=== PATIENT | male | born 1955 ===

== ENCOUNTER 2017-11-09 11:35 | Observation (INO) | payer SELFPAY ==
--- NOTE | 2017-11-09 12:55 | ED PDOC ---
HPI:STROKE - Time Time: 12:52 - Historian Historian: Patient - Chief Complaint Chief Complaint: Numbness - Onset Date: 11/08/17 Time: 23:00 - Timing Timing: Improved - TPA Positive for Contraindication: Yes Reason tPA is not being Administered: nih 0 and out of window - Notes: Notes:: Pt. had left arm tingles and cramps last night. Also present today morning with numbness so he came to the Er. Has left chest pain yesterday and took 1 ntg. Mild pain currently. Had dizziness mild, like light-headed. Yesterday felt tingles to the left face, but gone now. No leg issues. No right side issues. No dyspnea, abd pain. Has had diarrhea with black stool for 6 days. No nausea, vomit. No headache. NIHSS Stroke Scale - Date/Time Evaluation Performed Date Performed: 11/09/17 Time Performed: 12:55 When Was NIHSS Performed: Baseline - How Severe is the Stroke Level of Consciousness: 0=Alert LOC to Questions: 0=Both comments correct LOC to commands: 0=Obeys both correctly Best Gaze: 0=Normal Visual: 0=No visual loss Facial: 0=Normal Motor Arm - Left: 0=No drift Motor Arm - Right: 0=No drift Motor Leg - Left: 0=No drift Motor Leg - Right: 0=No drift Limb Ataxia: 0=Absent Sensory: 0=Normal Best Language: 0=No aphasia Dysarthia: 0=Normal articulation Extinction & Inattention (Neglect): 0=Normal, no object Score: 0 rTPA Inclusion/Exclusion - Refusal of Treatment Patient Refused Treatment: No - Inclusion Criteria for Altepase Patient is 18 years or Older: Yes The Clinical Diagnosis of Ischemic Stroke That is Causing a Potentially Disabling Neurological Deficit: No Time of Onset is Well Established to be Less Than 270 Minute Before Treatment Would Begin: No Risk/Benefit Discussed With Patient/Family Member Present: No Past Medical History Reviewed: Nursing Documentation, Vital Signs Vital Signs: Last Vital Signs Temp 99.8 F H 11/09/17 12:17 Pulse 74 11/09/17 12:17 Resp 16 11/09/17 12:17 BP 171/101 H 11/09/17 12:17 Pulse Ox 98 11/09/17 12:17 - Medical History PMH: Asthma, Back Problems, CAD, Depression, Diabetes, HTN, Hypercholesterolemia , Hyperlipidemia Denies: Chronic Kidney Disease - Surgical History Surgical History: Coronary Stent - Family History Family History: States: Unknown Family Hx - Social History Alcohol: None Drugs: Denies - Immunization History Hx Tetanus Toxoid Vaccination: No Hx Influenza Vaccination: Yes Hx Pneumococcal Vaccination: Yes - Home Medications Home Medications: Ambulatory Orders Medication Instructions Recorded Albuterol Sulfate [Ventolin Hfa] 2 puff IH Q6 PRN 11/09/17 Aspirin [Ecotrin] 81 mg PO DAILY 11/09/17 Atorvastatin [Lipitor] 40 mg PO HS 11/09/17 Lisinopril [Zestril] 20 mg PO DAILY 11/09/17 MetFORMIN [glucoPHAGE] 1,000 mg PO BID 11/09/17 Nitroglycerin [Nitrostat] 0.4 mg PO Q5MIN PRN 11/09/17 Pregabalin [Lyrica] 150 mg PO HS 11/09/17 Sertraline [Zoloft] 100 mg PO DAILY 11/09/17 hydrOXYzine HCl [Atarax] 10 mg PO DAILY 11/09/17 hydrOXYzine Pamoate [Vistaril] 25 mg PO HS 11/09/17 - Allergies Allergies/Adverse Reactions: Allergies Allergy/AdvReac Type Severity Reaction Status Date / Time Penicillins Allergy RASH Verified 04/28/15 08:07 Review of Systems ROS Statement: Except As Marked, All Systems Reviewed And Found Negative Cardiovascular: Positive for: Chest Pain Musculoskeletal: Positive for: Arm Pain Neurological: Positive for: Numbness, Dizziness. Negative for: Headache Physical Exam - Reviewed Nursing Documentation Reviewed: Yes Vital Signs Reviewed: Yes - Physical Exam Appears: Positive for: Non-toxic, No Acute Distress Head Exam: Positive for: ATRAUMATIC, NORMAL INSPECTION, NORMOCEPHALIC Skin: Positive for: Normal Color, Warm, DRY Eye Exam: Positive for: EOMI, Normal appearance, PERRL ENT: Positive for: Normal ENT Inspection Neck: Positive for: Normal, Painless ROM, Supple Cardiovascular/Chest: Positive for: Regular Rate, Rhythm Respiratory: Positive for: CNT, Normal Breath Sounds Gastrointestinal/Abdominal: Positive for: Normal Exam, Soft. Negative for: Tenderness Back: Positive for: Normal Inspection. Negative for: L CVA Tenderness, R CVA Tenderness Rectal: Positive for: Normal Exam. Negative for: Black Stool, Blood Streaked Stool, Tenderness Extremity: Positive for: Normal ROM. Negative for: Tenderness, Pedal Edema, Calf Tenderness Neurologic/Psych: Positive for: Alert, jewel hole cornerer II-XII, Oriented. Negative for: Motor/Sensory Deficits, Aphasia, Facial Droop - Laboratory Results Result Diagrams: 11/09/17 13:20 11/09/17 13:20 Interpretation Of Abn Labs: no acute - ECG ECG: Positive for: Interpreted By Me, Viewed By Me ECG Rhythm: Positive for: Normal QRS, Normal ST Segment, Sinus Rhythm O2 Sat by Pulse Oximetry: 98 Pulse Ox Interpretation: Normal - Radiology X-Ray: Read By Radiologist X-Ray Interpretation: No Acute Disease - CT Scan/US ct Other Rad Studies (CT/US): Read By Radiologist Other Rad Interpretation: no acute - Progress ED Course And Treament: 1300: Spoke with Dr. Torres. States not a thrombolytic candidate. Continue evaluation. 1630: Stable. AAOx3. Will give ASA. Admit to [facility]. Pain free. Spoke with [facility] resident who will admit. Disposition - Clinical Impression Clinical Impression: Chest pain, Paresthesia - Patient ED Disposition Is Patient to be Admitted: Yes Counseled Patient/Family Regarding: Studies Performed, Diagnosis - Disposition Disposition Time: 16:32 Condition: FAIR - Pt Status Changed To: Hospital Disposition Of: Observation - POA Present On Arrival: None
--- NOTE | 2017-11-09 13:09 | CT ---
Date of service: 11/09/2017 PROCEDURE: CT HEAD WITHOUT CONTRAST. HISTORY: code stroke COMPARISON: None available. TECHNIQUE: Axial computed tomography images were obtained through the head/brain without intravenous contrast. Radiation dose: Total exam DLP = 947.47 mGy-cm. This CT exam was performed using one or more of the following dose reduction techniques: Automated exposure control, adjustment of the mA and/or kV according to patient size, and/or use of iterative reconstruction technique. FINDINGS: HEMORRHAGE: No intracranial hemorrhage. BRAIN: There are mild chronic microangiopathic changes. There is no mass, mass effect or abnormal extra-axial fluid collection. There is no territorial infarction. The midline sagittal structures are normal. VENTRICLES: There is mild age-related global parenchymal volume loss and proportionate enlargement of the ventricles and cortical sulci. CALVARIUM: Unremarkable. PARANASAL SINUSES: Unremarkable as visualized. No significant inflammatory changes. MASTOID AIR CELLS: Unremarkable as visualized. No inflammatory changes. OTHER FINDINGS: None. IMPRESSION: No acute intracranial abnormality. If there is a persistent focal neurologic deficit and an ongoing clinical concern for acute infarction, an MRI of the brain without intravenous contrast would be a more sensitive modality for evaluation of hyperacute/acute ischemic infarction.. Mild chronic microangiopathic changes and mild age-related global parenchymal volume loss. Important findings were discussed with Dr. Stan Vera on 11/09/2017 at 1:05 p.m.
[2017-11-09] MEDS: Sodium Chloride 0.9% 1,000 ML IV SCH ×2 (13:13→23:30)
--- NOTE | 2017-11-09 13:35 | RAD ---
HISTORY: Code Stroke COMPARISON: Chest x-ray performed 07/07/15. TECHNIQUE: Chest, one view. FINDINGS: Examination limited by numerous external wires and leads as well as habitus. LUNGS: No focal consolidation. Please note that chest x-ray has limited sensitivity for the detection of pulmonary masses. PLEURA: No significant pleural effusion identified. No definite pneumothorax . CARDIOVASCULAR: The cardiomediastinal silhouette appears within normal limits of size. OSSEOUS STRUCTURES: No acute osseous abnormality identified. VISUALIZED UPPER ABDOMEN: Unremarkable. OTHER FINDINGS: None. IMPRESSION: No focal consolidation identified.
[2017-11-09 13:38] LABS: BASO # 0.1 K/uL (0.0-0.2); BASO % 0.9 % (0.0-2.0); EOS # 0.2 K/uL (0.0-0.7); EOS % 1.4 % (0.0-4.0); HEMOGLOBIN 15.5 g/dL (12.0-18.0); LYMPH # 2.7 K/uL (1.0-4.3); LYMPH % 18.9 % (20.0-40.0); MEAN CELL VOLUME 89.5 fl (80.0-94.0); MEAN CORPUSCULAR HEMOGLOBIN 30.1 pg (27.0-31.0); MEAN CORPUSCULAR HGB CONC 33.7 g/dL (33.0-37.0); MEAN PLATELET VOLUME 7.7 fl (7.2-11.7); MONO # 1.1 K/uL (0.0-0.8); NEUT # 10.2 K/uL (1.8-7.0); NEUT % 70.8 % (50.0-75.0); NRBC % 0.1 % (0.0-0.0); RBC 5.16 Mil/uL (4.40-5.90); RED CELL DISTRIBUTION WIDTH 16.6 % (11.5-14.5); WHITE BLOOD COUNT 14.3 K/uL (4.8-10.8)
[2017-11-09 13:55] LABS: INR 1.1; PROTHROMBIN TIME 12.6 Seconds (9.8-13.1)
[2017-11-09 13:58] LABS: PARTIAL THROMBOPLASTIN TIME 33.2 Seconds (25.6-37.1)
[2017-11-09 14:02] LABS: ALB/GLOB RATIO 1.3 (1.0-2.1); ALBUMIN 4.4 g/dL (3.5-5.0); ALT/SGPT 30 U/L (21-72); AST/SGOT 28 U/L (17-59); BLOOD UREA NITROGEN 9 mg/dl (9-20); CALCIUM 9.5 mg/dL (8.4-10.2); GFR NON-AFRICAN AMERICAN > 60; HDL CHOLESTEROL 31 MG/DL (30-70)
[2017-11-09 14:12] LABS: LDL CHOLESTEROL 43 mg/dL (0-129)
--- NOTE | 2017-11-09 16:16 | CARD ---
APPROVED REPORT Date of service: 11/09/2017 <Conclusion> Normal sinus rhythm Minimal voltage criteria for LVH, may be normal variant Borderline ECG
[2017-11-09] MEDS ORDERED: Aspirin 325 mg EC Tablets PO ONE ×2 (17:12→17:30)
[2017-11-09] MEDS ORDERED: Glucagon Recombinant 1 mg Inj IM PRN (18:38)
[2017-11-09] MEDS ORDERED: Dextrose 50% SYRINGE Inj (50 ml) IV PRN (18:38)
--- NOTE | 2017-11-09 18:54 | CP.PCM.HP ---
<Fish Banda - Last Filed: 11/09/17 18:39> History of Present Illness - History of Present Illness History of Present Illness: CC: Chest pain and left arm numbness HPI: 61 y/o man w/ pmh of NIDDM2, CAD s/p stents (does not know how many) 2015, HTN, HLD, depression, insomnia presents to the ED w/ chest pain and left arm numbness. Patient reports symptoms started last night at rest around 22:00. Patient reports pain as hot/sharp in nature, radiating to left shoulder and neck , as well as slight numbness of the left face as well. Patient took his prescription lyrica and ASA w/o relief. Patient reports near resolution of his chest pain and left arm numbness as of 2 hours ago. Patient denied any issues w / his right side. Patient denies headache, SOB, abdominal pain, nausea, vomiting, or fever. Patient reported recent dark stool diarrhea. ED course: vitals: 98.4F, 63 beats/min, 158/89 mm Hg, resp 18, O2 100% room air CBC: 14.3>15.5/46.2<373 CMP: 140/4.5, 104/30, 9/0.8, glucose 94, AST 28, ALT 30, alk phos 71 troponin: <0.0120 lipid: trig 121, chol 97, LDL 43, HDL 31 stool occult: negative EKG: NSR, no acute ST elevation/depression, no T wave inversion/tenting CXR: no focal consolidation ASA 325 mg PO once IVF NS @ 100 mL/hr PMD: [facility] PMH: NIDDM2, HTN, HLD, depression, insomnia meds: see med list PSH: none Fam: brother and sister HTN SOC: smokes 5 cigs/day for 45 years, denies alcohol and drugs ROS: 12 points assessed and positive findings as stated above. Present on Admission - Present on Admission Any Indicators Present on Admission: No History of DVT/PE: No History of Uncontrolled Diabetes: No Urinary Catheter: No Decubitus Ulcer Present: No Review of Systems - Review of Systems All systems: reviewed and no additional remarkable complaints except - Constitutional Constitutional: absent: Chills, Fever, Headache - EENT Eyes: absent: Change in Vision - Cardiovascular Cardiovascular: As Per HPI, Chest Pain - Respiratory Respiratory: absent: Cough, Dyspnea - Gastrointestinal Gastrointestinal: Diarrhea. absent: Abdominal Pain, Nausea, Vomiting - Genitourinary Genitourinary: absent: Dysuria - Integumentary Integumentary: absent: Rash - Neurological Neurological: As Per HPI, Numbness, Tingling. absent: Headaches Past Patient History - Past Social History Alcohol: None Drugs: Denies - CARDIAC Hx Cardiac Disorders: Yes - PULMONARY Hx Respiratory Disorders: Yes - NEUROLOGICAL Hx Neurological Disorder: No - HEENT Hx HEENT Problems: No - RENAL Hx Chronic Kidney Disease: No - ENDOCRINE/METABOLIC Hx Endocrine Disorders: Yes - HEMATOLOGICAL/ONCOLOGICAL Hx Blood Disorders: No - INTEGUMENTARY Hx Dermatological Problems: No - MUSCULOSKELETAL/RHEUMATOLOGICAL Hx Musculoskeletal Disorders: Yes - GASTROINTESTINAL Hx Gastrointestinal Disorders: No - GENITOURINARY/GYNECOLOGICAL Hx Genitourinary Disorders: No - PSYCHIATRIC Hx Psychophysiologic Disorder: Yes - SURGICAL HISTORY Hx Coronary Stent: Yes - ANESTHESIA Hx Anesthesia: No Meds Allergies/Adverse Reactions: Allergies Allergy/AdvReac Type Severity Reaction Status Date / Time Penicillins Allergy RASH Verified 04/28/15 08:07 Physical Exam - Constitutional Appears: Non-toxic, No Acute Distress - Head Exam Head Exam: ATRAUMATIC, NORMAL INSPECTION, NORMOCEPHALIC - Eye Exam Eye Exam: EOMI, Normal appearance, PERRL Pupil Exam: NORMAL ACCOMODATION - ENT Exam ENT Exam: Mucous Membranes Moist - Neck Exam Neck exam: Positive for: Full Rom. Negative for: Tenderness - Respiratory Exam Respiratory Exam: Clear to Auscultation Bilateral. absent: Decreased Breath Sounds, Rales, Rhonchi, Wheezes, Respiratory Distress - Cardiovascular Exam Cardiovascular Exam: REGULAR RHYTHM, RRR. absent: Tachycardia - GI/Abdominal Exam GI & Abdominal Exam: Normal Bowel Sounds, Soft. absent: Distended, Tenderness - Extremities Exam Extremities exam: Positive for: normal inspection. Negative for: calf tenderness, pedal edema, tenderness - Neurological Exam Neurological exam: Alert, Oriented x3 - Skin Skin Exam: Dry, Intact, Normal Color, Warm Results - Vital Signs Recent Vital Signs: Last Vital Signs Temp 98.4 F 11/09/17 18:06 Pulse 63 11/09/17 18:06 Resp 18 11/09/17 18:06 BP 158/89 H 11/09/17 18:06 Pulse Ox 100 09/18/18 17:59 - Labs Result Diagrams: 11/09/17 13:20 11/09/17 13:20 Labs: Laboratory Results - last 24 hr 11/09/17 11/09/17 11/09/17 12:34 13:20 13:20 WBC 14.3 H D RBC 5.16 Hgb 15.5 Hct 46.2 MCV 89.5 D MCH 30.1 MCHC 33.7 RDW 16.6 H Plt Count 373 MPV 7.7 Neut % (Auto) 70.8 Lymph % (Auto) 18.9 L Barton % (Auto) 8.0 Eos % (Auto) 1.4 Baso % (Auto) 0.9 Neut # (Auto) 10.2 H Lymph # (Auto) 2.7 Barton # (Auto) 1.1 H Eos # (Auto) 0.2 Baso # (Auto) 0.1 PT INR APTT Sodium 140 Potassium 4.5 Chloride 104 Carbon Dioxide 30 Anion Gap 11 BUN 9 Creatinine 0.8 Est GFR ( Amer) > 60 Est GFR (Non-Af Amer) > 60 POC Glucose (mg/dL) 87 Random Glucose 94 Calcium 9.5 Total Bilirubin 0.5 AST 28 ALT 30 Alkaline Phosphatase 71 Troponin I < 0.0120 Total Protein 8.0 Albumin 4.4 Globulin 3.5 Albumin/Globulin Ratio 1.3 Triglycerides 121 Cholesterol 97 LDL Cholesterol Direct 43 HDL Cholesterol 31 Stool Occult Blood Blood Type Blood Type Confirm Antibody Screen BBK History Checked 11/09/17 11/09/17 11/09/17 13:20 13:20 13:20 WBC RBC Hgb Hct MCV MCH MCHC RDW Plt Count MPV Neut % (Auto) Lymph % (Auto) Barton % (Auto) Eos % (Auto) Baso % (Auto) Neut # (Auto) Lymph # (Auto) Barton # (Auto) Eos # (Auto) Baso # (Auto) PT 12.6 INR 1.1 APTT 33.2 Sodium Potassium Chloride Carbon Dioxide Anion Gap BUN Creatinine Est GFR ( Amer) Est GFR (Non-Af Amer) POC Glucose (mg/dL) Random Glucose Calcium Total Bilirubin AST ALT Alkaline Phosphatase Troponin I Total Protein Albumin Globulin Albumin/Globulin Ratio Triglycerides Cholesterol LDL Cholesterol Direct HDL Cholesterol Stool Occult Blood Negative Blood Type A POSITIVE Blood Type Confirm Antibody Screen Negative BBK History Checked No verified bt 11/09/17 14:00 WBC RBC Hgb Hct MCV MCH MCHC RDW Plt Count MPV Neut % (Auto) Lymph % (Auto) Barton % (Auto) Eos % (Auto) Baso % (Auto) Neut # (Auto) Lymph # (Auto) Barton # (Auto) Eos # (Auto) Baso # (Auto) PT INR APTT Sodium Potassium Chloride Carbon Dioxide Anion Gap BUN Creatinine Est GFR ( Amer) Est GFR (Non-Af Amer) POC Glucose (mg/dL) Random Glucose Calcium Total Bilirubin AST ALT Alkaline Phosphatase Troponin I Total Protein Albumin Globulin Albumin/Globulin Ratio Triglycerides Cholesterol LDL Cholesterol Direct HDL Cholesterol Stool Occult Blood Blood Type Blood Type Confirm A POSITIVE Antibody Screen BBK History Checked Assessment & Plan (1) Chest pain Status: Acute (2) Paresthesia Status: Acute (3) CAD (coronary artery disease) Status: Chronic (4) HTN (hypertension) Status: Chronic (5) DM2 (diabetes mellitus, type 2) Status: Chronic (6) Anxiety Status: Chronic (7) Insomnia Status: Chronic - Assessment and Plan (Free Text) Assessment: 61 y/o man w/ pmh of NIDDM2, CAD s/p stents (does not know how many) 2014, HTN, HLD, depression, insomnia presents to the ED w/ chest pain and left arm numbness. Plan: Chest pain - Hx of CAD r/o ACS - vitals signs stable - CBC: 14.3>15.5/46.2<373 - CMP: 140/4.5, 104/30, 9/0.8, glucose 94, AST 28, ALT 30, alk phos 71 - troponin: <0.0120 - lipid: trig 121, chol 97, LDL 43, HDL 31 - EKG: NSR, no acute ST elevation/depression, no T wave inversion/tenting - CXR: no focal consolidation - f/u CBC, CMP - f/u troponin x2 - f/u repeat EKG - monitor for acute changes - admit for observation in Tele Paresthesia - most likely due to TIA - reported mostly of left arm w/ slight involvement of left face - no TPA given as not candidate for treatment w/ TPA as per neuro recommendations - CT head: no acute intracranial abnormality - ASA 325 mg PO given - c/w neuro check - monitor for acute changes CAD - Hx of stents in 2014 but unsure of how many stents placed - c/w ASA 81 mg, lipitor DM2 - last HbA1c 7.3% (03/03/2017) - c/w metformin 1000 mg PO BID - insulin correction scale - hypoglycemic protocol Diabetic neuropathy - c/w lyrica HTN - BP currently elevated - c/w lisinopril Anxiety - controlled w/ hydroxyzine HCL - c/w current medication depression - controlled w/ sertraline - c/w current medication Insomnia - controlled w/ hydroxyzine pamoate - c/w current medication Prophylactic measures -DVT: lovenox 40 mg SC daily <Vashti Sosa - Last Filed: 11/09/17 20:33> Results - Vital Signs Recent Vital Signs: Last Vital Signs Temp 98.7 F 11/09/17 20:12 Pulse 60 11/09/17 20:12 Resp 20 11/09/17 20:12 BP 161/90 H 11/09/17 20:12 Pulse Ox 96 11/09/17 20:12 - Labs Result Diagrams: 11/09/17 13:20 11/09/17 13:20 Labs: Laboratory Results - last 24 hr 11/09/17 11/09/17 11/09/17 12:34 13:20 13:20 WBC 14.3 H D RBC 5.16 Hgb 15.5 Hct 46.2 MCV 89.5 D MCH 30.1 MCHC 33.7 RDW 16.6 H Plt Count 373 MPV 7.7 Neut % (Auto) 70.8 Lymph % (Auto) 18.9 L Barton % (Auto) 8.0 Eos % (Auto) 1.4 Baso % (Auto) 0.9 Neut # (Auto) 10.2 H Lymph # (Auto) 2.7 Barton # (Auto) 1.1 H Eos # (Auto) 0.2 Baso # (Auto) 0.1 PT INR APTT Sodium 140 Potassium 4.5 Chloride 104 Carbon Dioxide 30 Anion Gap 11 BUN 9 Creatinine 0.8 Est GFR ( Amer) > 60 Est GFR (Non-Af Amer) > 60 POC Glucose (mg/dL) 87 Random Glucose 94 Calcium 9.5 Total Bilirubin 0.5 AST 28 ALT 30 Alkaline Phosphatase 71 Troponin I < 0.0120 Total Protein 8.0 Albumin 4.4 Globulin 3.5 Albumin/Globulin Ratio 1.3 Triglycerides 121 Cholesterol 97 LDL Cholesterol Direct 43 HDL Cholesterol 31 Stool Occult Blood Blood Type Blood Type Confirm Antibody Screen BBK History Checked 11/09/17 11/09/17 11/09/17 13:20 13:20 13:20 WBC RBC Hgb Hct MCV MCH MCHC RDW Plt Count MPV Neut % (Auto) Lymph % (Auto) Barton % (Auto) Eos % (Auto) Baso % (Auto) Neut # (Auto) Lymph # (Auto) Barton # (Auto) Eos # (Auto) Baso # (Auto) PT 12.6 INR 1.1 APTT 33.2 Sodium Potassium Chloride Carbon Dioxide Anion Gap BUN Creatinine Est GFR ( Amer) Est GFR (Non-Af Amer) POC Glucose (mg/dL) Random Glucose Calcium Total Bilirubin AST ALT Alkaline Phosphatase Troponin I Total Protein Albumin Globulin Albumin/Globulin Ratio Triglycerides Cholesterol LDL Cholesterol Direct HDL Cholesterol Stool Occult Blood Negative Blood Type A POSITIVE Blood Type Confirm Antibody Screen Negative BBK History Checked No verified bt 11/09/17 14:00 WBC RBC Hgb Hct MCV MCH MCHC RDW Plt Count MPV Neut % (Auto) Lymph % (Auto) Barton % (Auto) Eos % (Auto) Baso % (Auto) Neut # (Auto) Lymph # (Auto) Barton # (Auto) Eos # (Auto) Baso # (Auto) PT INR APTT Sodium Potassium Chloride Carbon Dioxide Anion Gap BUN Creatinine Est GFR ( Amer) Est GFR (Non-Af Amer) POC Glucose (mg/dL) Random Glucose Calcium Total Bilirubin AST ALT Alkaline Phosphatase Troponin I Total Protein Albumin Globulin Albumin/Globulin Ratio Triglycerides Cholesterol LDL Cholesterol Direct HDL Cholesterol Stool Occult Blood Blood Type Blood Type Confirm A POSITIVE Antibody Screen BBK History Checked
[2017-11-09] MEDS ORDERED: Alum-Mag Hydrox-Simethicone Susp (30 mL) PO PRN (20:32)
[2017-11-09] MEDS: Insulin Lispro (humaLOG) 100 Units/ml Inj SC SCH (22:15)
[2017-11-10 03:23] LABS: ALB/GLOB RATIO 1.2 (1.0-2.1); ALBUMIN 3.9 g/dL (3.5-5.0); ALT/SGPT 31 U/L (21-72); AST/SGOT 38 U/L (17-59); BLOOD UREA NITROGEN 11 mg/dl (9-20); CALCIUM 9.2 mg/dL (8.4-10.2); GFR NON-AFRICAN AMERICAN > 60
[2017-11-10 05:24] LABS: BASO # 0.1 K/uL (0.0-0.2); EOS # 0.4 K/uL (0.0-0.7); EOS % 3.2 % (0.0-4.0); HEMOGLOBIN 14.9 g/dL (12.0-18.0); LYMPH % 23.8 % (20.0-40.0); MEAN CELL VOLUME 90.2 fl (80.0-94.0); MEAN CORPUSCULAR HEMOGLOBIN 29.9 pg (27.0-31.0); MEAN CORPUSCULAR HGB CONC 33.2 g/dL (33.0-37.0); MEAN PLATELET VOLUME 7.7 fl (7.2-11.7); MONO # 1.1 K/uL (0.0-0.8); MONO % 8.6 % (0.0-10.0); NEUT # 7.9 K/uL (1.8-7.0); NEUT % 63.4 % (50.0-75.0); NRBC % 0.1 % (0.0-0.0); RBC 4.97 Mil/uL (4.40-5.90); WHITE BLOOD COUNT 12.4 K/uL (4.8-10.8)
[2017-11-10 08:13] VITALS: PULSE 62
[2017-11-10] MEDS: Enoxaparin 40 mg Syringe SC SCH ×2 (08:27→08:32)
[2017-11-10] MEDS: Insulin Lispro (humaLOG) 100 Units/ml Inj SC SCH (08:28)
[2017-11-10] MEDS ORDERED: Pantoprazole 40 mg EC Tab PO SCH (09:00)
[2017-11-10] MEDS: Sodium Chloride 0.9% 1,000 ML IV SCH (09:47)
--- NOTE | 2017-11-10 10:17 | CARD ---
APPROVED REPORT Date of service: 11/10/2017 EKG Measurement Heart [id number] <Conclusion> Normal sinus rhythm early transition prolonged QT abnormal ecg
--- NOTE | 2017-11-10 10:23 | CP.PCM.DIS ---
Provider - Provider Date of Admission: 11/09/17 16:31 Attending physician: Ollie Wilson MD Time Spent in preparation of Discharge (in minutes): 20 Hospital Course - Lab Results Lab Results: Most Recent Lab Values WBC 12.4 K/uL (4.8-10.8) H 11/10/17 04:31 RBC 4.97 Mil/uL (4.40-5.90) 11/10/17 04:31 Hgb 14.9 g/dL (12.0-18.0) 11/10/17 04:31 Hct 44.8 % (35.0-51.0) 11/10/17 04:31 MCV 90.2 fl (80.0-94.0) 11/10/17 04:31 MCH 29.9 pg (27.0-31.0) 11/10/17 04:31 MCHC 33.2 g/dL (33.0-37.0) 11/10/17 04:31 RDW 16.0 % (11.5-14.5) H 11/10/17 04:31 Plt Count 340 K/uL (130-400) 11/10/17 04:31 MPV 7.7 fl (7.2-11.7) 11/10/17 04:31 Neut % (Auto) 63.4 % (50.0-75.0) 11/10/17 04:31 Lymph % (Auto) 23.8 % (20.0-40.0) 11/10/17 04:31 Wallace % (Auto) 8.6 % (0.0-10.0) 11/10/17 04:31 Eos % (Auto) 3.2 % (0.0-4.0) 11/10/17 04:31 Baso % (Auto) 1.0 % (0.0-2.0) 11/10/17 04:31 Neut # (Auto) 7.9 K/uL (1.8-7.0) H 11/10/17 04:31 Lymph # (Auto) 3.0 K/uL (1.0-4.3) 11/10/17 04:31 Wallace # (Auto) 1.1 K/uL (0.0-0.8) H 11/10/17 04:31 Eos # (Auto) 0.4 K/uL (0.0-0.7) 11/10/17 04:31 Baso # (Auto) 0.1 K/uL (0.0-0.2) 11/10/17 04:31 PT 12.6 Seconds (9.8-13.1) 11/09/17 13:20 INR 1.1 11/09/17 13:20 APTT 33.2 Seconds (25.6-37.1) 11/09/17 13:20 Sodium 141 mmol/l (132-148) 11/10/17 02:30 Potassium 4.1 MMOL/L (3.6-5.0) 11/10/17 02:30 Chloride 109 mmol/L (98-107) H 11/10/17 02:30 Carbon Dioxide 26 mmol/L (22-30) 11/10/17 02:30 Anion Gap 10 (10-20) 11/10/17 02:30 BUN 11 mg/dl (9-20) 11/10/17 02:30 Creatinine 0.8 mg/dl (0.8-1.5) 11/10/17 02:30 Est GFR ( Amer) > 60 11/10/17 02:30 Est GFR (Non-Af Amer) > 60 11/10/17 02:30 POC Glucose (mg/dL) 80 mg/dL (65-110) 11/10/17 04:59 Random Glucose 81 mg/dL (75-110) 11/10/17 02:30 Hemoglobin A1c 6.0 % (4.2-6.5) 11/09/17 13:20 Calcium 9.2 mg/dL (8.4-10.2) 11/10/17 02:30 Total Bilirubin 0.4 mg/dl (0.2-1.3) 11/10/17 02:30 AST 38 U/L (17-59) 11/10/17 02:30 ALT 31 U/L (21-72) 11/10/17 02:30 Alkaline Phosphatase 68 U/L (38-126) 11/10/17 02:30 Troponin I < 0.0120 ng/mL (0.00-0.120) 11/10/17 02:30 Total Protein 7.3 G/DL (6.3-8.2) 11/10/17 02:30 Albumin 3.9 g/dL (3.5-5.0) 11/10/17 02:30 Globulin 3.4 gm/dL (2.2-3.9) 11/10/17 02:30 Albumin/Globulin Ratio 1.2 (1.0-2.1) 11/10/17 02:30 Triglycerides 121 mg/DL (0-149) 11/09/17 13:20 Cholesterol 97 mg/dL (0-199) 11/09/17 13:20 LDL Cholesterol Direct 43 mg/dL (0-129) 11/09/17 13:20 HDL Cholesterol 31 MG/DL (30-70) 11/09/17 13:20 Stool Occult Blood Negative (NEGATIVE) 11/09/17 13:20 Blood Type A POSITIVE 11/09/17 13:20 Blood Type Confirm A POSITIVE 11/09/17 14:00 Antibody Screen Negative 11/09/17 13:20 BBK History Checked No verified bt 11/09/17 13:20 - Hospital Course Hospital Course: PT is a 62 yo male with pmh of CAD recieved stent, DM2, htn, HLD, Depression presented to ER due to L sided hand/arm numbness plus facial numbness and chest pain. Pt was admitted to evaluate for CVA. Upon arrival Vitals were WNL except blood pressure of 158/89. Labs, trop, EKG, xray and Ct scan was taken and neuro was called. Aspirin, sliding scale and home medication were given. Pt was sent to telemetry for observation. Labs: WNL except Wbc of 14.3 improved today to 12.4 EKG: WNL xray: no acute dz Ct Scan : no active disease MRI : no acute disease Pt today symptoms improved, Pt have no complain, he denies any numbness or pain , and ready to go home Pt blood pressure was still elevated, will increase lisinopril to 40mg add Norvasc 5mg daily Pt will be discharged home and follow up with PCP in 1 week Pt was advised to go to closest ER if symptoms returns Discharge Exam - Head Exam Head Exam: ATRAUMATIC, NORMAL INSPECTION, NORMOCEPHALIC - Eye Exam Eye Exam: EOMI, Normal appearance, PERRL Pupil Exam: NORMAL ACCOMODATION, PERRL - Respiratory Exam Respiratory Exam: Clear to PA & Lateral, NORMAL BREATHING PATTERN, UNREMARKABLE - Cardiovascular Exam Cardiovascular Exam: REGULAR RHYTHM, +S1, +S2 - GI/Abdominal Exam GI & Abdominal Exam: Normal Bowel Sounds, Unremarkable - Back Exam Back exam: absent: CVA tenderness (L), CVA tenderness (R) - Neurological Exam Neurological exam: Alert, Oriented x3 - Psychiatric Exam Psychiatric exam: Normal Affect, Normal Mood - Skin Skin Exam: Dry, Intact, Normal Color, Warm Discharge Plan - Discharge Medications Prescriptions: amLODIPine [Norvasc] 5 mg PO DAILY #30 tab Lisinopril [Zestril] 40 mg PO DAILY #30 tablet - Follow Up Plan Condition: FAIR Disposition: HOME/ ROUTINE Referrals: [facility] [place] [Outside]
--- NOTE | 2017-11-10 12:08 | CP.PCM.CON ---
History of Present Illness - History of Present Illness History of Present Illness: Neurology Consultation Note: Mr. Velázquez is a 62-year-old man with a past medical history of NIDDM2, CAD (s/ p stents in 2015), HTN, HLD, depression, who presented to the ED with chest pain and left arm numbness that started the night before at around 10 PM. Troponins were negative. Non-contrast CT scan of the head was normal. He was not a candidate for IV tPA due to minimal symptoms and being outside the time window. MRI of the brain was done and showed some scattered T2 hyperintensities , which are non-specific, but no acute findings and no restricted diffusion. Past Patient History - Past Medical History & Family History Past Medical History?: Yes - Past Social History Smoking Status: Current Some Days Smoker - CARDIAC Hx Cardiac Disorders: Yes Hx Hypercholesterolemia: Yes Hx Hypertension: Yes - PULMONARY Hx Respiratory Disorders: Yes - NEUROLOGICAL Hx Neurological Disorder: No - HEENT Hx HEENT Problems: No - RENAL Hx Chronic Kidney Disease: No - ENDOCRINE/METABOLIC Hx Endocrine Disorders: Yes Hx Diabetes Mellitus Type 2: Yes - HEMATOLOGICAL/ONCOLOGICAL Hx Blood Disorders: No - INTEGUMENTARY Hx Dermatological Problems: No - MUSCULOSKELETAL/RHEUMATOLOGICAL Hx Musculoskeletal Disorders: Yes Hx Back Pain: Yes Hx Falls: No - GASTROINTESTINAL Hx Gastrointestinal Disorders: No - GENITOURINARY/GYNECOLOGICAL Hx Genitourinary Disorders: No - PSYCHIATRIC Hx Psychophysiologic Disorder: Yes Hx Depression: Yes Hx Substance Use: No - SURGICAL HISTORY Hx Surgeries: Yes Hx Coronary Stent: Yes - ANESTHESIA Hx Anesthesia: Yes Hx Anesthesia Reactions: No Hx Malignant Hyperthermia: No Has any member of the family had a problem w/ anesthesia?: No Meds Home Medications: Home Medication List Medication Instructions Recorded Confirmed Type Lisinopril [Zestril] 40 mg PO DAILY #30 tablet 11/10/17 Rx amLODIPine [Norvasc] 5 mg PO DAILY #30 tab 11/10/17 Rx Allergies/Adverse Reactions: Allergies Allergy/AdvReac Type Severity Reaction Status Date / Time Penicillins Allergy RASH Verified 04/28/15 08:07 - Medications Medications: Current Medications Al Hydrox/Mg Hydrox/Simethicone (Maalox Plus 30 Ml) 30 ml PO Q4 PRN PRN Reason: Indigestion / Heartburn Aspirin (Ecotrin) 81 mg PO DAILY DEJA Last Admin: 11/10/17 08:27 Dose: 81 mg Atorvastatin Calcium (Lipitor) 40 mg PO HS [facility] Last Admin: 11/09/17 22:24 Dose: 40 mg Dextrose (Dextrose 50% Inj) 0 ml IV STAT PRN; Protocol PRN Reason: Hypoglycemia Protocol Dextrose (Glutose 15) 0 gm PO ONCE PRN; Protocol PRN Reason: Hypoglycemia Protocol Enoxaparin Sodium (Lovenox) 40 mg SC DAILY DEJA PRN Reason: Protocol Last Admin: 11/10/17 08:32 Dose: Not Given Glucagon (Glucagen Diagnostic Kit) 0 mg IM STAT PRN; Protocol PRN Reason: Hypoglycemia Protocol Hydroxyzine HCl (Atarax) 10 mg PO DAILY [facility] Last Admin: 11/10/17 08:27 Dose: 10 mg Hydroxyzine Pamoate (Vistaril) 25 mg PO HS [facility] Last Admin: 11/09/17 22:24 Dose: 25 mg Sodium Chloride (Sodium Chloride 0.9%) 1,000 mls @ 100 mls/hr IV .Q10H [facility] Last Admin: 11/09/17 23:30 Dose: 100 mls/hr Insulin Human Lispro (Humalog) 0 units SC ACHS [facility] PRN Reason: Protocol Last Admin: 11/10/17 08:28 Dose: Not Given Lisinopril (Zestril) 20 mg PO DAILY [facility] Last Admin: 11/10/17 08:29 Dose: 20 mg Metformin HCl (Glucophage) 1,000 mg PO BID [facility] Last Admin: 11/10/17 08:27 Dose: 1,000 mg Pantoprazole Sodium (Protonix Ec Tab) 40 mg PO DAILY [facility] Last Admin: 11/10/17 08:27 Dose: 40 mg Pregabalin (Lyrica) 150 mg PO HS [facility] Last Admin: 11/09/17 22:24 Dose: 150 mg Sertraline HCl (Zoloft) 100 mg PO DAILY [facility] Last Admin: 11/10/17 08:27 Dose: 100 mg Results - Vital Signs Recent Vital Signs: Last Vital Signs Temp 98 F 11/10/17 08:13 Pulse 62 11/10/17 08:29 Resp 20 11/10/17 08:13 BP 162/90 H 11/10/17 08:29 Pulse Ox 98 11/10/17 08:13 - Labs Result Diagrams: 11/10/17 04:31 11/10/17 02:30 Labs: Laboratory Results - last 24 hr 11/09/17 11/09/17 11/09/17 12:34 13:20 13:20 WBC 14.3 H D RBC 5.16 Hgb 15.5 Hct 46.2 MCV 89.5 D MCH 30.1 MCHC 33.7 RDW 16.6 H Plt Count 373 MPV 7.7 Neut % (Auto) 70.8 Lymph % (Auto) 18.9 L Mcminn % (Auto) 8.0 Eos % (Auto) 1.4 Baso % (Auto) 0.9 Neut # (Auto) 10.2 H Lymph # (Auto) 2.7 Mcminn # (Auto) 1.1 H Eos # (Auto) 0.2 Baso # (Auto) 0.1 PT INR APTT Sodium 140 Potassium 4.5 Chloride 104 Carbon Dioxide 30 Anion Gap 11 BUN 9 Creatinine 0.8 Est GFR ( Amer) > 60 Est GFR (Non-Af Amer) > 60 POC Glucose (mg/dL) 87 Random Glucose 94 Hemoglobin A1c Calcium 9.5 Total Bilirubin 0.5 AST 28 ALT 30 Alkaline Phosphatase 71 Troponin I < 0.0120 Total Protein 8.0 Albumin 4.4 Globulin 3.5 Albumin/Globulin Ratio 1.3 Triglycerides 121 Cholesterol 97 LDL Cholesterol Direct 43 HDL Cholesterol 31 Stool Occult Blood Blood Type Blood Type Confirm Antibody Screen BBK History Checked 11/09/17 11/09/17 11/09/17 13:20 13:20 13:20 WBC RBC Hgb Hct MCV MCH MCHC RDW Plt Count MPV Neut % (Auto) Lymph % (Auto) Mcminn % (Auto) Eos % (Auto) Baso % (Auto) Neut # (Auto) Lymph # (Auto) Mcminn # (Auto) Eos # (Auto) Baso # (Auto) PT 12.6 INR 1.1 APTT 33.2 Sodium Potassium Chloride Carbon Dioxide Anion Gap BUN Creatinine Est GFR ( Amer) Est GFR (Non-Af Amer) POC Glucose (mg/dL) Random Glucose Hemoglobin A1c 6.0 Calcium Total Bilirubin AST ALT Alkaline Phosphatase Troponin I Total Protein Albumin Globulin Albumin/Globulin Ratio Triglycerides Cholesterol LDL Cholesterol Direct HDL Cholesterol Stool Occult Blood Blood Type A POSITIVE Blood Type Confirm Antibody Screen Negative BBK History Checked No verified bt 11/09/17 11/09/17 11/09/17 13:20 14:00 20:53 WBC RBC Hgb Hct MCV MCH MCHC RDW Plt Count MPV Neut % (Auto) Lymph % (Auto) Mcminn % (Auto) Eos % (Auto) Baso % (Auto) Neut # (Auto) Lymph # (Auto) Mcminn # (Auto) Eos # (Auto) Baso # (Auto) PT INR APTT Sodium Potassium Chloride Carbon Dioxide Anion Gap BUN Creatinine Est GFR ( Amer) Est GFR (Non-Af Amer) POC Glucose (mg/dL) 145 H Random Glucose Hemoglobin A1c Calcium Total Bilirubin AST ALT Alkaline Phosphatase Troponin I Total Protein Albumin Globulin Albumin/Globulin Ratio Triglycerides Cholesterol LDL Cholesterol Direct HDL Cholesterol Stool Occult Blood Negative Blood Type Blood Type Confirm A POSITIVE Antibody Screen BBK History Checked 11/10/17 11/10/17 11/10/17 02:30 04:31 04:59 WBC 12.4 H RBC 4.97 Hgb 14.9 Hct 44.8 MCV 90.2 MCH 29.9 MCHC 33.2 RDW 16.0 H Plt Count 340 MPV 7.7 Neut % (Auto) 63.4 Lymph % (Auto) 23.8 Mcminn % (Auto) 8.6 Eos % (Auto) 3.2 Baso % (Auto) 1.0 Neut # (Auto) 7.9 H Lymph # (Auto) 3.0 Mcminn # (Auto) 1.1 H Eos # (Auto) 0.4 Baso # (Auto) 0.1 PT INR APTT Sodium 141 Potassium 4.1 Chloride 109 H Carbon Dioxide 26 Anion Gap 10 BUN 11 Creatinine 0.8 Est GFR ( Amer) > 60 Est GFR (Non-Af Amer) > 60 POC Glucose (mg/dL) 80 Random Glucose 81 Hemoglobin A1c Calcium 9.2 Total Bilirubin 0.4 AST 38 ALT 31 Alkaline Phosphatase 68 Troponin I < 0.0120 Total Protein 7.3 Albumin 3.9 Globulin 3.4 Albumin/Globulin Ratio 1.2 Triglycerides Cholesterol LDL Cholesterol Direct HDL Cholesterol Stool Occult Blood Blood Type Blood Type Confirm Antibody Screen BBK History Checked 11/10/17 11:01 WBC RBC Hgb Hct MCV MCH MCHC RDW Plt Count MPV Neut % (Auto) Lymph % (Auto) Mcminn % (Auto) Eos % (Auto) Baso % (Auto) Neut # (Auto) Lymph # (Auto) Mcminn # (Auto) Eos # (Auto) Baso # (Auto) PT INR APTT Sodium Potassium Chloride Carbon Dioxide Anion Gap BUN Creatinine Est GFR ( Amer) Est GFR (Non-Af Amer) POC Glucose (mg/dL) Random Glucose Hemoglobin A1c Calcium Total Bilirubin AST ALT Alkaline Phosphatase Troponin I < 0.0120 Total Protein Albumin Globulin Albumin/Globulin Ratio Triglycerides Cholesterol LDL Cholesterol Direct HDL Cholesterol Stool Occult Blood Blood Type Blood Type Confirm Antibody Screen BBK History Checked
--- NOTE | 2017-11-10 12:27 | MRI ---
Date of service: 11/10/2017 PROCEDURE: MRI BRAIN WITHOUT CONTRAST HISTORY: R/O CVA COMPARISON: Noncontrast head CT from 11/09/2017. TECHNIQUE: Multiplanar, multisequence MR images of the brain were obtained without intravenous contrast enhancement. FINDINGS: HEMORRHAGE: None DWI: No evidence of an acute or early subacute infarction. BRAIN PARENCHYMA: There are mild chronic microangiopathic changes. There is no mass, mass effect or abnormal extra-axial fluid collection. There is no territorial infarction. The midline sagittal structures are normal. VENTRICLES: There is mild age-related global parenchymal volume loss and proportionate enlargement of the ventricles and cortical sulci. CRANIUM: There is normal bone marrow signal pattern. ORBITS: Grossly unremarkable. PARANASAL SINUSES/MASTOIDS: Predominantly clear. VASCULAR SYSTEM: There are normal signal voids in the larger intracranial arteries. OTHER FINDINGS: None. IMPRESSION: No acute intracranial abnormality. Mild chronic microangiopathic changes and mild age-related global parenchymal volume loss.
--- NOTE | 2017-11-10 12:42 | US ---
Date of service: 11/09/2017 PROCEDURE: Duplex ultrasound of the carotid and vertebral arteries. HISTORY: TIA COMPARISON: None available. TECHNIQUE: Grayscale and duplex Doppler evaluation of the cervical carotid and vertebral arteries were performed. The common carotid, carotid bifurcations and cervical ICA and proximal ECA were evaluated. The vertebral arteries were evaluated for gross patency and direction. FINDINGS: There is mild diffuse intimal thickening. RIGHT CAROTID ARTERIES: Common Carotid Artery: Normal. Maximal flow velocity of 53.7 cm/s. Carotid Bifurcation: Normal. Internal Carotid Artery:Normal. Maximal flow velocity of 54.9 cm/s. External Carotid Artery (proximal branches): Normal. Maximal flow velocity of 47.9 cm/s. ICA/CCA Ratio: 1.0 LEFT CAROTID ARTERIES: Common Carotid Artery: Normal. Maximal flow velocity of 79.4 cm/s. Carotid Bifurcation: Normal. Internal Carotid Artery:Normal. Maximal flow velocity of 77.9 cm/s. External Carotid Artery (proximal branches): Normal. Maximal flow velocity of 51.4 cm/s. ICA/CCA Ratio: 1.0 VERTEBRAL ARTERIES: Right Vertebral Artery: Patent. Antegrade flow. Left Vertebral Artery: Patent. Antegrade flow. OTHER FINDINGS: None. IMPRESSION: No evidence of hemodynamically significant stenosis in the internal carotid arteries by peak systolic velocity criteria. Patent bilateral vertebral arteries with antegrade flow.
[2017-11-10 12:48] VITALS: BP 155/90; RESP 18; TEMP 98.3; O2SAT 99
--- NOTE | 2017-11-10 18:09 | CARD ---
APPROVED REPORT Date of service: 11/10/2017 EXAM: Two-dimensional and M-mode echocardiogram with Doppler and color Doppler. Other Information Quality : GoodRhythm : NSR INDICATION CVA/TIA Chest Pain 2D DIMENSIONS IVSd1.10 (0.7-1.1cm)LVDd5.00 (3.9-5.9cm) LVOT Diameter2.19 (1.8-2.4cm)PWd1.10 (0.7-1.1cm) IVSs2.14 (0.8-1.2cm)LVDs3.19 (2.5-4.0cm) FS (%) 27.4 %PWs1.77 (0.8-1.2cm) M-Mode DIMENSIONS Left Atrium (MM)4.75 (2.5-4.0cm)Aortic Root3.41 (2.2-3.7cm) Aortic Valve AoV Peak Wflvbzpf189.9cm/sAoV VTI24.8cmAO Peak GR.7mmHg LVOT Peak Qokhorrv27.0cm/sLVOT VTI17.39cmAO Mean GR.4mmHg Mitral Valve MV E Wuobacjk06.2cm/sMV E Peak Gr.89mmHgMV DECEL [id number] MV A Btuifuaq56.4cm/sMV [id number]/A ratio0.7 MVA (PHT)2.79cm2 TDI Lateral E' Peak V6.93cm/sMedial E' Peak V5.62cm/sE/Lateral E'8.3 E/Medial E'10.2 Pulmonary Valve PV Peak Nwegzebb22.4cm/s Tricuspid Valve TR Peak [id number]/sRAP [id number] Peak Gr.20mmHg [id number] LEFT VENTRICLE The left ventricle is normal size. There is normal left ventricular wall thickness. The left ventricular systolic function is normal. The estimated ejection fraction is 60-65% No regional wall motion abnormalities noted.. Transmitral Doppler flow pattern is Grade I-abnormal relaxation pattern. No left ventricle thrombus noted on this study. There is no ventricular septal defect visualized. There is no mass noted in the left ventricle. RIGHT VENTRICLE The right ventricle is normal size. There is normal right ventricular wall thickness. The right ventricular systolic function is normal. ATRIA The left atrium size is moderately dilated The right atrium size is normal. The interatrial septum is intact with no evidence for an atrial septal defect. AORTIC VALVE The aortic valve is normal in structure. No aortic regurgitation is present. There is no aortic valvular stenosis. MITRAL VALVE The mitral valve is normal in structure. There is no mitral valve stenosis. There is mild mitral valve regurgitation noted. TRICUSPID VALVE The tricuspid valve is normal in structure. There is mild tricuspid valve regurgitation noted. PASP within normal limits PULMONIC VALVE The pulmonary valve is normal in structure. There is no pulmonic valvular regurgitation. GREAT VESSELS The aortic root is mildly dilated (4.0 cm) The ascending aorta is normal in size. The pulmonary artery is normal. The IVC is normal in size and collapses >50% with inspiration. PERICARDIAL EFFUSION There is no pericardial effusion. <Conclusion> Mild mitral insufficiency Mild TR with normal PASP Dilated left atrium Normal LV systolic function with doppler hemodynamics consistent with abnormal relaxation The estimated ejection fraction is 60-65% The aortic root is mildly dilated
== END 2017-11-10 14:00 | disposition home or self-care (01) ==
LOC: H.ER 11:35 → H.ERHOLD 16:31 → H.TEL 18:11
PROVIDERS: ADMIT Internal Medicine; ATTEND Internal Medicine
DX: R07.9 Chest pain, unspecified (principal); E11.9 Type 2 diabetes mellitus without complications; F41.9 Anxiety disorder, unspecified; I10 Essential (primary) hypertension; I25.10 Atherosclerotic heart disease of native coronary artery without angina pectoris; Z95.5 Presence of coronary angioplasty implant and graft; E78.00 Pure hypercholesterolemia, unspecified; E78.5 Hyperlipidemia, unspecified; F17.210 Nicotine dependence, cigarettes, uncomplicated; J45.909 Unspecified asthma, uncomplicated; G47.00 Insomnia, unspecified; Z79.82 Long term (current) use of aspirin; Z79.84 Long term (current) use of oral hypoglycemic drugs
CPT/HCPCS: 36415; 70450; 70551; 71045; 80053; 80061; 82948; 83036; 84484; 85025; 85610; 85730; 86850; 86900; 93005; 93306; 93880; 99285; G0328; G0378; J7030; Q0177